=== PATIENT | female | born 1985 | race Caucasian/White ===

== ENCOUNTER 2018-11-27 12:18 | Emergency (ER) | payer OTHER ==
[~2018-11-27] VITALS: Ht 157.5 cm; Wt 78.5 kg
[2018-11-27 12:22] VITALS: BP 145/77
[2018-11-27] MEDS ORDERED: methylPREDNISolone SOD SUCC PF 125 MG/2 ML VIAL. IV ONE (13:00)
[2018-11-27] MEDS ORDERED: FAMOTIDINE 20 MG/2 ML VIAL IVP ONE (13:00)
--- NOTE | 2018-11-27 13:14 | PHYS DOC ---
Past Medical History Past Medical History: Hypertension, Hypothyroid Past Surgical History: Appendectomy Alcohol Use: Occasionally Drug Use: None Adult General Chief Complaint Chief Complaint: ALLERGIC REACTION HPI HPI Patient is a 33 year old female who was brought here by EMS from her workplace due to an allergic reaction. Patient went to eat at [employer] when she came back, she felt nauseous and then had explosive diarrhea. Then she started having itchy rash all over body. She feel weak and dizzy, she went to the medical office at her workplace, the nurse there started IV, gave her some IV fluid, gave her 50 mg of Benadryl IV and epinephrine injection and called EMS to take her here for evaluation. Patient had the same episode last week when she was in [place] for a business trip. SHe was seen in the ER there, they gave her a prescription for an EPIPEN and she still has it at home. She is not sure what she came into contact with. At this time, patient feels much better, denies any chest pain, no trouble breathing. She denies any trouble swallowing, denies any swelling in her tongue or lip. All other ROS is negative unless otherwise noted in HPI Review of Systems Review of Systems See above Current Medications Current Medications Current Medications Medications (Trade) Dose Ordered Sig/Radames Start Time Stop Time Status Last Admin Dose Admin Famotidine (Pepcid Vial) 20 mg 1X ONCE 11/27/18 13:00 11/27/18 13:01 DC 11/27/18 13:00 20 MG Methylprednisolone Sodium Succinate (SOLU-Medrol 125MG VIAL) 125 mg 1X ONCE 11/27/18 13:00 11/27/18 13:01 DC 11/27/18 13:00 125 MG Allergies Allergies Allergies Coded Allergies Type Severity Reaction Last Updated Verified lavender (Lavandula angustifolia) Allergy Unknown 11/27/18 Yes Physical Exam Physical Exam See above Constitutional: Well developed, well nourished, no acute distress, non-toxic appearance. [] HENT: Normocephalic, atraumatic, bilateral external ears normal, oropharynx moist, no oral exudates, nose normal. [] Eyes: PERRLA, EOMI, conjunctiva normal, no discharge. [] Neck: Normal range of motion, no tenderness, supple, no stridor. [] Cardiovascular:Heart rate regular rhythm, no murmur [] Lungs & Thorax: Bilateral breath sounds clear to auscultation [] Abdomen: Bowel sounds normal, soft, no tenderness, no masses, no pulsatile masses. [] Skin: Diffuse maculopapular rash, hive on her chest, extremities. Back: No tenderness, no CVA tenderness. [] Extremities: No tenderness, no cyanosis, no clubbing, ROM intact, no edema. [] Neurologic: Alert and oriented X 3, normal motor function, normal sensory function, no focal deficits noted. [] Psychologic: Affect normal, judgement normal, mood normal. [] Current Patient Data Vital Signs Vital Signs Date Time Temp Pulse Resp B/P (MAP) Pulse Ox O2 Delivery O2 Flow Rate FiO2 11/27/18 12:22 98.4 99 20 145/77 (99) 100 Room Air 98.4 EKG EKG [] Radiology/Procedures Radiology/Procedures [] Course & Med Decision Making Course & Med Decision Making Pertinent Labs and Imaging studies reviewed. (See chart for details) Patient was given medications in the ER, she felt much better, she will be discharged home, follow up with an allergy doctor this week. Dragon Disclaimer Dragon Disclaimer This electronic medical record was generated, in whole or in part, using a voice recognition dictation system. Departure Departure Impression: Primary Impression: Allergic reaction Additional Impression: Urticaria Disposition: 01 HOME, SELF-CARE Condition: IMPROVED Referrals: NO PCP (PCP) PLEASE FOLLOW UP WITH AN ALLERGY DOCTOR THIS WEEK. Patient Instructions: Allergies, Generic, Hives Additional Instructions: Take 25 mg Benadryl every 4 hours as needed for itching and swelling. Scripts Famotidine (PEPCID) 20 Mg Tablet 20 MG PO DAILY for 7 Days, #7 TAB Prov: ENA HU DO 11/27/18 Prednisone (PREDNISONE) 20 Mg Tablet 20 MG PO DAILY for 7 Days, #7 TAB Prov: ENA HU DO 11/27/18 Problem Qualifiers ENA HU DO Nov 27, 2018 13:14
[2018-11-27] MEDS ORDERED: FAMO-63 PO (14:20)
[2018-11-27] MEDS ORDERED: PRED20TA PO (14:20)
== END 2018-11-27 14:45 | disposition home or self-care (01) ==
LOC: ER 12:18
DX: L50.9 Urticaria, unspecified (principal); I10 Essential (primary) hypertension; E03.9 Hypothyroidism, unspecified; Z90.89 Acquired absence of other organs; Z88.8 Allergy status to other drugs, medicaments and biological substances
CPT/HCPCS: 96374; 96375; 99284; J2930; J3490